=== PATIENT | female | born 1940 | race Caucasian/White ===

== ENCOUNTER 2024-05-13 10:00 | Outpatient (RCR) | payer MEDICARE, OTHER, SELFPAY | END 2024-06-23 09:10 | disposition home or self-care (01) | PROVIDERS: PCP Internal Medicine; Visit Provider Family Medicine | DX: M54.50 Low back pain, unspecified (principal); M79.604 Pain in right leg; Z51.89 Encounter for other specified aftercare | CPT/HCPCS: 97110; 97140; 97161 ==

== ENCOUNTER 2024-11-17 10:24 | Emergency (ER) | payer MEDICARE, OTHER, SELFPAY ==
[2024-11-17 11:24] VITALS: BP 164/80; PULSE 96; RESP 16; TEMP 36.3; O2SAT 99; BMI 22.9
--- NOTE | 2024-11-17 11:40 | CRLHL7_ITS ---
For Patients: As a result of the Century Cures Act, medical imaging exams and procedure reports are released immediately into your electronic medical record. You may view this report before your referring provider. If you have questions, please contact your health care provider. INDICATION: Pain in right leg COMPARISON: None. TECHNIQUE: A compression venous ultrasound exam was performed of the right lower extremity using farah-scale imaging, color Doppler and spectral Doppler analysis. FINDINGS: Sonographic imaging of the right lower extremity demonstrates normal compressibility and color Doppler venous blood flow within the common femoral vein, deep femoral vein, and the proximal greater saphenous vein. Within the thigh, the femoral vein is patent and compressible. At a lower level, the popliteal and posterior tibial veins also show normal compressibility and color Doppler venous blood flow. Limited imaging of the contralateral groin demonstrates a normal spectral waveform and color Doppler venous blood flow within the left common femoral vein. Fluid in the right joint space is present measuring 5.2 x 2.8 x 4.1 cm IMPRESSION: No evidence of deep vein thrombosis within the right lower extremity. Right knee effusion. Dictated by Hakan Lizarraga MD @ 11/17/2024 12:30:55 PM (Electronically Signed)
--- NOTE | 2024-11-17 15:43 | ED.GENADULT ---
HPI - General Adult General Date Seen: 11/17/24 Chief complaint: Lower Extremity Swelling Stated complaint: Possible Blood Clot Time Seen by Provider: 11/17/24 12:34 Source: patient History of Present Illness HPI narrative: Patient is an 84-year-old woman who is here for evaluation of her right knee. She noted some swelling behind it and some discomfort starting last night. She says she walks very frequently, it started to bother her after her walk yesterday. She says she really does not have any pain in the knee however. She denies any injuries. It has not been red or warm. No other joint complaints. No history of problems with this knee. She is here primarily because she wanted to make sure was not a blood clot. No fevers or systemic complaints, no shortness of breath. Related Data Home Medications ?Medication ?Instructions ?Recorded ?Confirmed amlodipine 5 mg tablet 5 mg PO DAILY 11/17/24 11/17/24 atenolol 50 mg tablet 50 mg PO DAILY 11/17/24 11/17/24 levothyroxine 88 mcg tablet 88 mcg PO DAILY 11/17/24 11/17/24 lisinopril 20 mg tablet 20 mg PO DAILY 11/17/24 11/17/24 Allergies Allergy/AdvReac Type Severity Reaction Status Date / Time No Known Drug Allergies Allergy Verified 11/17/24 11:29 [facility] Social History How often do you have a drink containing alcohol: never AUDIT-C Alcohol total score: 0 Exam Narrative: Exam Narrative: Vital signs reviewed In general, alert, well-appearing woman. Looks younger than her stated age. Extremities: Examination of the right knee shows an effusion but no erythema, warmth, or tenderness. She has full range of motion. She has a moderate effusion. Distal CMS is intact, no calf tenderness or edema. Skin: Warm and dry. No rash or lesion. Const: Vital Signs, click to edit/add: Vital Signs - 24 hr 11/17/24 11:24 Temperature 97.4 F L Pulse Rate [Pulse Oximeter] 96 Respiratory Rate 16 Blood Pressure [Ri ght Upper Arm] 164/80 H Pulse Oximetry 99 Oxygen Delivery Me thod Room Air Documenting provider has reviewed patient's vital signs: yes Course Course ED Course: She had a venous Doppler which is read by Radiology is negative for DVT. They do note that she has fluid in the knee joint. Discussed possible causes for this. Does not sound like she has had any defined injury to the knee, this could be degenerative, could be something like gout although she really does not have much pain. She is not anticoagulated, doubt that this is hemorrhagic. I do not think there is enough fluid here that tapping the knee just to pull fluid off is warranted, and I do not see anything that is suggestive of a septic arthritis. We talked about doing an x-ray of the knee, she really does not feel that is necessary. For now, will try conservative measures for a few days, if she is not improving recommended orthopedic follow-up. Discussed reasons to return such as increasing pain, redness, fevers etcetera. Vital Signs Vital signs: Initial Vital Signs Temperature 97.4 F L 11/17/24 11:24 Temperature Source Temporal Artery Scan 11/17/24 11:24 Pulse Rate 96 11/17/24 11:24 Respiratory Rate 16 11/17/24 11:24 Blood Pressure 164/80 H 11/17/24 11:24 Blood Pressure Mean 108 H 11/17/24 11:24 Blood Pressure Position Sitting 11/17/24 11:24 Pulse Oximetry 99 11/17/24 11:24 Oxygen Delivery Method Room Air 11/17/24 11:24 Vital Signs Temperature 97.4 F L 11/17/24 11:24 Pulse Rate 96 11/17/24 11:24 Respiratory Rate 16 11/17/24 11:24 Blood Pressure 164/80 H 11/17/24 11:24 Pulse Oximetry 99 11/17/24 11:24 Oxygen Delivery Method Room Air 11/17/24 11:24 Temperature 97.4 F L 11/17/24 11:24 Pulse Rate 96 11/17/24 11:24 Respiratory Rate 16 11/17/24 11:24 Blood Pressure 164/80 H 11/17/24 11:24 Pulse Oximetry 99 11/17/24 11:24 Oxygen Delivery Method Room Air 11/17/24 11:24 Discharge Plan Discharge Clinical Impression: Effusion, right knee Patient Disposition: Home, Self-Care Condition: Stable Instructions: Swollen Knee Joint (ED) Additional Instructions: Continue with Tylenol, ice. Recommend relative rest without long walks for few days. If you are having continued difficulties, recommend orthopedic follow-up. You can call [phone] to schedule an appointment with them. If you have severe pain, redness, fevers, return to the ER for re-evaluation. Prescriptions: No Action lisinopril 20 mg tablet 20 mg PO DAILY amlodipine 5 mg tablet 5 mg PO DAILY levothyroxine 88 mcg tablet 88 mcg PO DAILY atenolol 50 mg tablet 50 mg PO DAILY Follow Up/Referrals: Emerson Pena MD [Staff Physician] - Stand Alone Forms: [employer] Info Instructions
== END 2024-11-17 12:55 | disposition home or self-care (01) ==
LOC: ED 13:01
PROVIDERS: Emergency Provider Emergency Medicine; PCP Family Medicine
DX: M79.604 Pain in right leg (principal)
CPT/HCPCS: 93971; 99283; 99284